=== PATIENT | male | born 1995 | race Caucasian/White ===

== ENCOUNTER 2017-06-10 22:06 | Emergency (ER) | payer OTHER, MEDICAID ==
[2017-06-10] MEDS ORDERED: Ketorolac 60 MG/2 ML SDV IM ONE (22:11)
[2017-06-10] MEDS ORDERED: Ondansetron 4 MG Tab.DIS PO PRN (22:12)
--- NOTE | 2017-06-10 23:17 | EDM.PDOC ---
ED HPI GENERAL MEDICAL PROBLEM - General Chief Complaint: General Stated Complaint: MIGRAINE Time Seen by Provider: 06/10/17 22:15 Source of Information: Reports: Patient History Limitations: Reports: No Limitations - History of Present Illness INITIAL COMMENTS - FREE TEXT/NARRATIVE: Patient is a 22 year old man with a history of migraine headaches who is having a migraine again tonight. No nausea or vomiting or photophobia. No loss of neurological function. No other complaints. Onset: Today, Sudden Onset Date: 06/10/17 Onset Time: 21:00 Duration: Hour(s): (1) Location: Reports: Head Quality: Reports: Ache, Same as Previous Episode Severity: Moderate Improves with: Reports: Medication Worsens with: Reports: None Context: Reports: Other (History of migraines.) Associated Symptoms: Reports: No Other Symptoms Treatments MINE BOSS: Reports: Acetaminophen Headache Pain Score (Numeric/FACES): 7 - Related Data Allergies Allergy/AdvReac Type Severity Reaction Status Date / Time No Known Allergies Allergy Verified 06/10/17 22:08 Home Meds: Home Meds . [Unable to Verify Home Med List] 06/10/17 [History] Past Medical History Musculoskeletal History: Reports: Fracture, Other (See Below) Other Musculoskeletal History: LUE Fx, RLE Fx Neurological History: Reports: Headaches, Chronic, Migraines Psychiatric History: Reports: ADHD Social & Family History - Family History Family Medical History: Noncontributory - Tobacco Use Smoking Status *Q: Former Smoker Years of Tobacco use: 2 Packs/Tins Daily: 1 Used Tobacco, but Quit: Yes Month Tobacco Last Used: 11/05 Second Hand Smoke Exposure: No - Caffeine Use Caffeine Use: Reports: Energy Drinks, Soda - Recreational Drug Use Recreational Drug Use: No ED ROS GENERAL - Review of Systems Review Of Systems: ROS reveals no pertinent complaints other than HPI. ED EXAM, GENERAL - Physical Exam Exam: See Below Exam Limited By: No Limitations General Appearance: Alert Eye Exam: Bilateral Eye: EOMI, Normal Fundi, Normal Inspection, PERRL Ears: Normal External Exam, Normal Canal, Hearing Grossly Normal, Normal TMs Ear Exam: Bilateral Ear: Auricle Normal, Canal Normal, TM normal Nose: Normal Inspection, Normal Mucosa, No Blood Throat/Mouth: Normal Inspection, Normal Lips, Normal Teeth, Normal Gums, Normal Oropharynx, Normal Voice, No Airway Compromise Head: Atraumatic, Normocephalic Neck: Normal Inspection, Supple, Non-Tender, Full Range of Motion Respiratory/Chest: No Respiratory Distress, Lungs Clear, Normal Breath Sounds, No Accessory Muscle Use, Chest Non-Tender Cardiovascular: Normal Peripheral Pulses, Regular Rate, Rhythm, No Edema, No Gallop, No JVD, No Murmur, No Rub GI/Abdominal: Normal Bowel Sounds, Soft, Non-Tender, No Organomegaly, No Distention, No Abnormal Bruit, No Mass Back Exam: Normal Inspection, Full Range of Motion, NT Extremities: Normal Inspection, Normal Range of Motion, Non-Tender, Normal Capillary Refill, No Pedal Edema Neurological: Alert, Oriented, CN II-XII Intact, Normal Cognition, Normal Gait, Normal Reflexes, No Motor/Sensory Deficits Psychiatric: Normal Affect, Normal Mood Skin Exam: Warm, Dry, Intact, Normal Color, No Rash Lymphatic: No Adenopathy Course - Vital Signs Text/Narrative:: Uneventful ED course. He was given 60 mg of IM toradol and 4 mg of Zofran, he fell asleep and the headache went away. He will take Ibuprofen 800 mg po q 6 hours prn and recheck with PCP next week at the clinic. - Orders/Labs/Meds Orders: Active Orders 24 hr Category Date Time Status Ondansetron [Zofran ODT] Med 06/10/17 22:12 Active 4 mg PO ONETIME PRN Medication Orders Ondansetron HCl (Zofran Odt) 4 mg PO ONETIME PRN PRN Reason: Nausea Meds: Medications Generic Name Dose Route Start Last Admin Trade Name Freq PRN Reason Stop Dose Admin Ondansetron HCl 4 mg 06/10/17 22:12 Zofran Odt PO ONETIME PRN Nausea Discontinued Medications Generic Name Dose Route Start Last Admin Trade Name Freq PRN Reason Stop Dose Admin Ketorolac Tromethamine 60 mg 06/10/17 22:11 Toradol IM 06/10/17 22:12 ONETIME ONE Departure - Departure Time of Disposition: 23:17 Disposition: Home, Self-Care 01 Condition: Good Clinical Impression: Migraine - Discharge Information Instructions: Ondansetron oral dissolving tablet, Ketorolac injection, Recurrent Migraine Headache, [id number] Forms: ED Department Discharge Additional Instructions: Drink plenty of fluids and get plenty of rest. Do not take anymore Ibuprofen until at least 8:00am tomorrow morning. Keep lights dim and limit amount of exposure to electronic devices including cell phones, tablets and television, as these will all increase severity of migraine headaches. Follow up in clinic with regular provider for further treatment of migraines. Call with any questions. - My Orders Last 24 Hours: My Active Orders 06/10/17 22:12 Ondansetron [Zofran ODT] 4 mg PO ONETIME PRN - Assessment/Plan Last 24 Hours: My Active Orders 06/10/17 22:12 Ondansetron [Zofran ODT] 4 mg PO ONETIME PRN
== END 2017-06-10 22:35 | disposition home or self-care (01) ==
LOC: LB.ED 22:06
DX: G43.909 Migraine, unspecified, not intractable, without status migrainosus (principal); Z87.891 Personal history of nicotine dependence
CPT/HCPCS: 96372; 99283; A9270; J1885